=== PATIENT | female | born 1995 | race Caucasian/White ===

== ENCOUNTER 2024-03-22 02:14 | Observation (INO) | payer OTHER, SELFPAY ==
[2024-03-22] VITALS (13 sets, daily range): BP systolic 123–147; BP diastolic 73–88; PULSE 82–109; RESP 16–24; TEMP 36.9–37.6; O2SAT 95–100; BMI 21.6
--- NOTE | 2024-03-22 | PATH_ITS ---
[facility] Accession Number: [id number] No. of containers..01 Tissue . 01 Material submitted: . appendix - APPENDIX . 01 Diagnosis: APPENDIX, APPENDECTOMY: Acute suppurative appendicitis and acute serositis. Focal nodular and inflamed fat necrosis. Negative for dysplasia and malignancy. [facility] 03/24/20241412 Local . 01 Electronically signed: . Jesus Horton MD, Pathologist NPI- [id number] . 01 Gross description: . Received in formalin with two patient identifiers and appendix, is a lazo vermiform appendix (6.5 cm in length and 0.8 cm in diameter) with a mesoappendix up to 2.0 cm. The serosa is partially rough with no lazo exudate noted. There is a yellow serosal nodule measuring 0.6 x 0.4 x 0.2 cm located roughly 1 cm from the distal tip and inked orange. Upon inking the nodule had fragmented off. The margin is inked blue and the lumen is patent and dilated containing lazo to brown fecal material. The lumen ranges from 0.5 to 0.1 cm. The avelar are 0.4 cm thick and lazo with no noted perforations or lesions. Speech And Language Specialist sections include the margin, one-half of the bisected distal tip and cross-sections submitted in cassette A1. The cross-sections that contained the serosal nodule and the fragmented serosal nodule were submitted in cassette A2. (KB:[id number]) /[facility] 03/24/20241412 Local . 01 Pathologist provided ICD-10: K35.80 . 01 CPT . 744328 Specimen Comment: A courtesy copy of this report has been sent to [phone] Performed at: [address] [place] [address] [address], [place], [place] [id number] MD García Goff MD Phone: [phone]
[2024-03-22] MEDS: LACTATED RINGERS 1,000 ML 100 ML IV ×2 (03:54→13:55)
[2024-03-22] MEDS: ONDANSETRON 4 MG/2 ML INJ IV ×2 (07:00→13:36)
--- NOTE | 2024-03-22 10:30 | DIET.CONS ---
Dietary Consultation Note Admission Date: 03/22/2024 02:14 Assessment: 29 y F admitted for appendicitis. RD screened for low MNA. Met w/ pt at bedside. Reports from October to December had 15 lb weight loss, then within this past month she lost another 5 lb d/t reduced appetite with nausea. In the past month has only been able to do 3 small meals and a few snacks in between as opposed to usual 3 regular sized meals + snacks as needed. Nutrition focused physical exam performed with no significant results. Assessed temples, clavicle/deltoid region, interosseous, buccal and orbital fat pads, triceps Ht: 172.72 cm Wt: 64.5 kg (142 lb) BMI: 21.6 UBW: 160 lb (-12% weight in 6 months, severe) (-3.4% weight loss in 1 month, non-severe) Last BM: 03/21/24 (03/22/24 04:51) MNA: 9 Nicko Score: 23 Diet: 03/22/24 02:37 NPO Diet Diet Modifications: May Advance Diet as Tolerated: No Safety Tray needed?: No NPO Type: Strict Nutrition Diagnosis: Unintentional weight loss r/t decreased appetite d/t nausea aeb 12% weight loss within 6 months, severe Interventions: pt NPO, will f/u when diet advanced by surgery and monitor PO intakes EER: [id number] kcals (25-30 kcal/kg) 50 g protein (.8 g/kg per age) Electronically Signed by: Alejandra Rodas 03/22/24 10:30 Clinical Dietitian [address] [address]
--- NOTE | 2024-03-22 13:35 | PM.HP.1 ---
History of Present Illness History of Present Illness Date Patient Seen: 03/22/24 Time Patient Seen: 14:14 Chief complaint: Appendicitis Narrative: 29-year-old woman no significant past medical history admitted with a appendicitis. She presented to an outside hospital yesterday with complaint of abdominal pain in the right lower quadrant. She reports for the past few weeks she is had a vague abdominal discomfort. CT abdomen pelvis at the outside hospital demonstrated simple appendicitis with fecalith. No abscess or free air. She was transferred to [facility] because the facility there operating room facility was down. She is never had prior abdominal surgery. She would a previous lower extremity fracture related surgery which she tolerated without anesthetic or bleeding issue. [facility] Social History household members: friend(s) Smoking Status: Never smoker Meds Home Medications and Allergies Home Medications Medication Instructions Recorded Confirmed Type No Known Home Medications 03/22/24 03/22/24 History Allergies Allergy/AdvReac Type Severity Reaction Status Date / Time amoxicillin Allergy Rash Verified 03/22/24 13:57 bacitracin Allergy Rash Verified 03/22/24 13:57 [From Neosporin ([id number])] neomycin Allergy Rash Verified 03/22/24 13:57 [From Neosporin ([id number])] polymyxin B Allergy Rash Verified 03/22/24 13:57 [From Neosporin ([id number])] Exam Vital Signs (past 8 hours): - 03/22/24 08:00 03/22/24 08:00 03/22/24 08:55 Temperature 98.8 F Pulse Rate 100 H Respiratory Rate 16 Blood Pressure 125/79 Pulse Oximetry 98 98 98 Oxygen Delivery Method Room Air Room Air Oxygen Flow Rate 0 0 Oxygen Delivery Method Room Air Oxygen Flow Rate 0 Narrative Exam Narrative: GENERAL: A well nourished, well developed adult Woman, resting comfortably, in no acute distress. HEENT: Normocephalic, atraumatic. No scleral icterus CHEST: Rising symmetrically. No audible wheezes CARDIOVASCULAR: Warm and well perfused. Regular rate ABDOMEN: right lower quadrant tenderness no isabel peritonitis EXTREMITIES: Normal tone and without edema. NEUROLOGIC: Moving all extremities spontaneously. No gross motor deficits. Assessment & Plan Assessment and plan (1) Acute appendicitis: Qualifiers: Acute appendicitis type: other Qualified Code(s): K35.890 - Other acute appendicitis without perforation or gangrene Status: Acute Assessment & Plan narrative: 29-year-old healthy woman with symptoms and radiographic findings consistent with acute uncomplicated appendicitis. We discussed management of appendicitis both antibiotic therapy and surgery. An overview of the operation as well as its risks( Hemorrhage, infection, damage to surrounding structures) and benefits were reviewed. Following discussion she provides her informed consent to proceed. Time-Based Coding :: [TOTAL MINUTES] spent with patient and on the chart (including review of chart, obtaining history, exam, reviewing outside data, placing orders, documenting exam and treatment plan, and counseling patient) on [DATE].
--- NOTE | 2024-03-22 13:41 | PC.NURSE ---
Pt to OR via bed by OR personnel with Chart. IV Zofran given just prior to transport.
--- NOTE | 2024-03-22 13:53 | CM.DANOTE ---
B DCP Assessment note pt is a 29yoF direct admit from [facility], here with appendicitis. PCP none listed, [facility] Lilliam CHURCHO and self pay CARDIO TECH reviewed EMR. pt under the care of Dr. Dia. Limited note information as of 1400 today. per chart, pt lives at home in [place] with mother Ladonna? or lives with friends? Per RN, pt indep at baseline. No obvious CM needs identified by RN at this time. Pt in OR during attempted assessment P: anticipate return home when medically stable. transport plan unknown. no identified barriers to safe dc home at this time, CM team will continue to follow in case any DCP needs arise throughout pt's stay. LISA Romero Discharge Planning/Care Management CM Discharge Assessment Start: 03/22/24 13:52 Freq: Status: Active Protocol: Document 03/22/24 13:52 (Rec: 03/22/24 13:53 [id number]) Discharge Planning Assessment Assigned Sash Finisher LISA Cedeno DPOA/Assigned Designee Name mother Dougherty Contact Information [phone] Advance Directives? No History Provided By Patient,Medical Record Prior Living Arrangements House Household Members friend(s) Independent with ADL's Yes Is patient alert and oriented? Yes Discharge Plan Home Referrals Initiated None needed Review Status In Process Please Provide Date Initial DC 03/22/24 Assessment Was Performed Next Review Type Continued Stay Review
--- NOTE | 2024-03-22 14:20 | SUR.OPER ---
Supine on padded OR bed, head on pillow, right arm secured on padded arm board at <90 degrees abduction,left arm padded and tucked. legs uncrossed, safety belt at thigh, tape over blanket over lower legs.
[2024-03-22] MEDS: BUPIVACAINE 0.25% (PF) VIAL 30 ML INJ (15:04)
--- NOTE | 2024-03-22 15:33 | PM.OP.1 ---
Operative Date/Time/Diagnoses Date of procedure: 03/22/24 Time of procedure: 15:33 Pre-op diagnosis: acute appendicitis Post-op diagnosis: same Procedure & Clinicians Procedure: laparoscopic appendectomy Same procedure as scheduled: Yes Indications: 29-year-old woman with symptoms and radiographic findings consistent with acute appendicitis Surgeon: Sly Dia Click Yes if Unassisted: Yes Anesthesia Type: General Operative Notes Findings: acute non perforated appendicitis Specimen(s): other ( appendix) Estimated Blood Loss (mL): 10 Procedure in detail: Patient was brought to the operating room placed supine on the table. Bilateral lower extremity compression devices were applied. Anesthesia was induced and they intubated with an endotracheal tube. They received ciprofloxacin prior to skin incision. The left arm was tucked and appropriately padded. They were prepped and draped in sterile fashion. Time-out was performed. An infraumbilical incision was made the umbilical stalk was grasped and elevated and incision was made and the abdomen was entered atraumatically. A 12 mm balloon trocar was then placed through the incision and pneumoperitoneum of 14 mm Hg was established. The scope was then inserted and the abdomen inspected, there was no evidence of injury upon entry. Two 5 mm ports were placed under direct visualization, one in the left lower quadrant and second in the lower midline. A thorough laparoscopic evaluation was performed inspecting all four quadrants. The patient was then tilted right side up. The small bowel was then swept to the upper aspect of the abdomen. The tenie were followed to the base of the cecum where the appendix was identified. It was acutely inflamed but not perforated. The appendix was grasped and a window within the mesentery was made at the base of the appendix using the [place] dissector with care to avoid injuring the cecum. The mesoappendix was then divided using the endo-stapler with a staple length of 2.5 mm-white load. The mesenteric staple line was inspected for hemostasis. The appendix was then amputated flush at the cecum using the endo-stapler blue load. The specimen was retrieved using a endoscopic retrieval bag through the 10 mm infra-umbilical port. The right paracolic gutter and the pouch of Hardeep were irrigated The 5 mm ports were then removed under direct visualization. The umbilical fascial incision was closed with 0 Vicryl in a figure-eight fashion. The skin wounds were irrigated and closed with 4-0 Monocryl followed by the application of Dermabond. Sponge instrument count at the end of the operation was correct. The patient tolerated procedure well was extubated and transferred to the postoperative care unit in stable condition. Complications: none Post-operative Disposition: observation
[2024-03-22] MEDS: SCOPOLAMINE 1 PATCH TOP (18:49)
--- NOTE | 2024-03-22 19:13 | PC.NURSE ---
Pt is dressed and ready for discharge home with Parents. IV has been removed. Pt states pain is quite tolerable and declines pain meds at this time. Scopalamine patch applied to right ear per orders. Pt was able to eat and ambulate in the room. Went over d/c instructions with Pt and Family-discussed d/c meds, time of last dose, reviewed stroke education, s/s of infection, no lifting greater than 10 pounds for 2 weeks, no driving until not taking narcotics and cleared by MD, and encouraged plenty of fluids to prevent constipation or dehydration. Also reminded Pt not to exceed 3000mg of Acetaminophen in 24hours. Pt to follow up with Dr. Dia in 2 weeks. No further questions and Pt was taken out via w/c by TELECOMMUNICATIONS CLERK to pov with family and all belongings.
== END 2024-03-22 19:18 | disposition home or self-care (01) ==
PROVIDERS: Surgery; Admitting Provider Surgery; Referring Provider Surgery; Visit Provider Surgery
PROC: 0DTJ4ZZ Resection of Appendix, Percutaneous Endoscopic Approach (ICD-10-PCS; CPT 44970; principal; 2024-03-22 15:00)
DX: K35.80 Unspecified acute appendicitis (principal)
CPT/HCPCS: 44970; G0378; G0379; J0330; J1100; J1171; J1200; J1885; J2405; J2704; J3490